=== PATIENT | female | born 1975 | race Caucasian/White ===

== ENCOUNTER → 2017-02-24 | Day surgery (SDC) | payer OTHER ==
[~2017-02-24] MED LIST: ALPRAZOLAM0.5 M2 PO; DEPO-PROVER150 MG/M1 IM; HYDROCODON-ACE1 EAC5 PO; OMEPRAZOLE40 M1 PO; PHENERGAN25 M1; TOPAMAX PO; VITAMIN B 12 IM; XARELTO20 MG PO
--- NOTE | ~2017-02-24 | OR ---
Unit #: [id number] #: [id number] Patient: BRODY BROWN [id number] [address] [address] [id number] O MR#: [id number] NAME: BRODY BROWN ROOM: Date of Procedure: 02/24/2017 Admission Date: 02/24/2017 Surgeon: Milan Bosch M.D. : 1975 Attending Physician: Milan Bosch M.D. Primary Care Physician: Nadiya Corona OPERATIVE REPORT PREOPERATIVE DIAGNOSES 1. Reflux symptoms resistant to medications. 2. Intermittent rectal bleeding. POSTOPERATIVE DIAGNOSES 1. Reflux symptoms resistant to medications. 2. Intermittent rectal bleeding. PROCEDURES PERFORMED 1. Esophagogastroduodenoscopy. 2. Biopsy of antrum for Helicobacter pylori testing. 3. Colonoscopy to cecum. ANESTHESIA Monitored anesthesia care. FINDINGS The patient was found on upper endoscopy to have a small hiatal hernia and mild gastritis. On colonoscopy, the patient was found to have a normal colon except for mild internal hemorrhoids. SPECIMENS Sent to pathology. COMPLICATIONS None apparent. CONDITION The patient tolerated the procedure well. INDICATIONS FOR PROCEDURE The patient is a 41-year-old female, who presents at this time with reflux symptoms resistant to medications and also some intermittent rectal bleeding. She is on Xarelto. She presents at this time for evaluation by upper and lower endoscopy. DESCRIPTION OF PROCEDURE After obtaining informed consent, the patient was brought to the endoscopy suite. After adequate monitored anesthesia care, had the endoscope placed through the mouth into the upper esophagus under direct vision. It was advanced to the second portion of the duodenum without difficulty and with the lumen always in view. The second and third portion of the duodenum Unit #: [id number] #: [id number] Patient: BRODY BROWN were normal. The duodenal bulb was normal. The pylorus opened normally. There was some mild distal gastritis present and a biopsy was obtained for Helicobacter pylori testing. There was good hemostasis. On retroflexing back to the GE junction, the patient was found to have a small hiatal hernia. No other abnormalities were found in the proximal third, middle third, or incisura. The scope was pulled back above the GE junction. There was no stenosis, stricture, or neoplasm seen. There was no significant esophagitis. The remaining portion of the esophagus was within normal limits. Laryngeal structures were grossly normal as viewed from above. At this point in time, the colonoscope was placed through the anus and slowly advanced to the level of the cecum without difficulty with lumen always in view. The cecum was normal as was the ileocecal valve. The ascending colon was normal as was the hepatic flexure, transverse colon, splenic flexure, descending colon, sigmoid colon, and rectum. On retroflexing in the rectum to the anorectal junction, the patient was found to have some mild internal hemorrhoids. The scope was removed without difficulty. The patient tolerated the procedure well and went from the endoscopy suite to the recovery area in stable condition. RECOMMENDATIONS Gastroesophageal reflux sheet given. Prescription for omeprazole given. High-fiber diet, lots of liquids, tucks or wipes p.r.n. Restart Xarelto tomorrow and stop before hernia repair as instructed. Call Thursday for pathology. Dictated by... Barry Bocanegra/lisa TD: 02/24/2017 08:14 JOB #: [id number] CC: . [facility] OPERATIVE REPORT Page 1 of 1 X Milan Bosch MD X PROCEDURE OPERATIVE NOTE
[2017-02-24 08:15] LABS: BASOPHIL% 0.4 % (0-2.5); EOSINOPHIL# 0.2 X10e3 (0-0.7); HEMATOCRIT 44.2 % (35.0-45.0); HEMOGLOBIN 14.3 gm/dL (12.0-16.0); LYMPHOCYTE# 1.9 X10e3 (1.0-3.5); LYMPHOCYTE% 24.8 % (17.0-45.0); MEAN CELL VOLUME 84.8 FL (83-96); MEAN CORPUSCULAR HEMOGLOBIN 27.4 PG (28-34); MEAN CORPUSCULAR HGB CONC 32.3 g/dL (30-36); MEAN PLATELET VOLUME 7.9 FL (6.5-11.5); MONOCYTE# 0.5 X10e3 (0-1.0); MONOCYTE% 6.7 % (3.0-12.0); NEUTROPHIL# 5.1 X10e3 (1.5-7.1); NEUTROPHIL% 66.1 % (40-75); PLATELET COUNT 251 X10e3 (140-420); RED BLOOD COUNT 5.21 X10e (3.90-5.30); RED CELL DISTRIBUTION WIDTH 14.9 % (11.0-15.5); WHITE BLOOD COUNT 7.6 X10e3 (4.0-10.5)
[2017-02-24 08:24] LABS: PROTHROMBIN TIME (PATIENT) 10.7 SECONDS (9.6-11.5)
[2017-02-24 08:31] LABS: DIFF IND NO
[2017-02-24 08:36] LABS: ALBUMIN SERUM 3.5 g/dL (3.5-5.0); BILIRUBIN,TOTAL 0.7 mg/dL (0.2-2.0); CALCIUM SERUM 8.8 mg/dL (8.4-10.2); GLOM FILT RATE Estimated 70.9 mL/min (>60); POTASSIUM 3.4 mmol/L (3.5-5.1); PROTEIN TOTAL SERUM 6.9 g/dL (6.0-8.3)
== END | disposition home or self-care (01) ==
LOC: COPS 05:37
PROVIDERS: Surgery
DX: K21.9 Gastro-esophageal reflux disease without esophagitis (principal); K62.5 Hemorrhage of anus and rectum; K44.9 Diaphragmatic hernia without obstruction or gangrene; K29.70 Gastritis, unspecified, without bleeding; K64.8 Other hemorrhoids; Z79.01 Long term (current) use of anticoagulants; Z88.0 Allergy status to penicillin; Z88.5 Allergy status to narcotic agent; Z88.1 Allergy status to other antibiotic agents; Z88.8 Allergy status to other drugs, medicaments and biological substances; Z87.442 Personal history of urinary calculi; M79.7 Fibromyalgia
CPT/HCPCS: 80053; 84703; 85025; 85610; 87077

== ENCOUNTER → 2017-03-02 | Day surgery (SDC) | payer OTHER ==
--- NOTE | ~2017-03-02 | OR ---
Unit #: [id number] #: [id number] Patient: BRODY BROWN [id number] [address] [address] [id number] O MR#: [id number] NAME: BRODY BROWN ROOM: Date of Procedure: 03/02/2017 Admission Date: 03/02/2017 Surgeon: Franco Cruz M.D. : 1975 Attending Physician: Franco Cruz M.D. Primary Care Physician: Nadiya Corona OPERATIVE REPORT PREOPERATIVE DIAGNOSIS Incarcerated incisional hernia. POSTOPERATIVE DIAGNOSIS Incarcerated incisional hernia, 3 cm. PROCEDURE PERFORMED Laparoscopic ventral hernia repair of incarcerated incisional hernia with 6-inch circular Ventralight mesh. PURCHASING AND CLAIMS SUPERVISOR Hiro. ANESTHESIA General endotracheal anesthesia. ESTIMATED BLOOD LOSS Minimal. IV FLUIDS 800 crystalloid. COMPLICATIONS None. INDICATIONS FOR PROCEDURE The patient is a 41-year-old with hernia at her previous umbilical hernia repair site. She presents for laparoscopic repair. DESCRIPTION OF PROCEDURE The patient was taken to the operative theater and placed in supine position. General anesthesia was induced. The abdomen was prepped and draped. A 5-mm Optiview trocar was placed in the left upper quadrant without difficulty. The abdomen was insufflated to 15 mmHg with CO2. Under direct vision, I placed a left lower quadrant 10 mm. General inspection the abdomen revealed an incarcerated hernia with omentum. This was reduced with gentle traction. I then placed a 5-mm port in the right lower quadrant. I positioned a 6-inch Ventralight mesh over the defect. This was held in place with single-stranded Vicryl sutures and delivered transcutaneous. I then secured this with a SorbaFix Tacker in 2 circumferential rows. This covered the defect by at least 5 cm. Hemostasis was adequate. I removed the ports under direct vision, closed with 4-0 Vicryl. The patient tolerated the procedure well and sent to the Unit #: [id number] #: [id number] Patient: BRODY BROWN recovery room in good condition. Dictated by... Barry Rodriguez/lisa TD: 03/03/2017 02:24 JOB #: [id number] OPERATIVE REPORT Page 1 of 1 X Franco Cruz MD PROCEDURE OPERATIVE NOTE
== END | disposition home or self-care (01) ==
LOC: CSUR 05:37
DX: K43.0 Incisional hernia with obstruction, without gangrene (principal); E66.01 Morbid (severe) obesity due to excess calories; K21.9 Gastro-esophageal reflux disease without esophagitis; G43.909 Migraine, unspecified, not intractable, without status migrainosus; F41.9 Anxiety disorder, unspecified; Z68.43 Body mass index [BMI] 50.0-59.9, adult; Z86.718 Personal history of other venous thrombosis and embolism; Z87.442 Personal history of urinary calculi; Z88.0 Allergy status to penicillin; Z88.1 Allergy status to other antibiotic agents; Z88.2 Allergy status to sulfonamides; Z88.6 Allergy status to analgesic agent; Z91.040 Latex allergy status; Z91.041 Radiographic dye allergy status; Z79.01 Long term (current) use of anticoagulants; Z79.891 Long term (current) use of opiate analgesic; Z79.899 Other long term (current) drug therapy; Z90.49 Acquired absence of other specified parts of digestive tract; Z90.89 Acquired absence of other organs; Z98.890 Other specified postprocedural states
CPT/HCPCS: 84703; C1781; J0131; J0330; J1100; J1644; J1956; J2250; J2405; J3010

== ENCOUNTER → 2017-03-09 | Outpatient (CLI) | payer OTHER ==
[2017-03-09 12:19] LABS: URINE APPEARANCE CLOUDY; URINE BILIRUBIN NEG (NEG); URINE BLOOD TRACE (NEG); URINE COLOR DK YELLOW; URINE GLUCOSE NEG (NEG); URINE KETONE NEG (NEG); URINE LEUKOCYTE ESTERASE 2+ (NEG); URINE NITRATE NEG (NEG); URINE PROTEIN NEG (NEG); URINE SPECIFIC GRAVITY 1.025 (1.003-1.035)
[2017-03-09 12:21] LABS: URBCS1 AUWI 0-2 /[HPF] (0-2); URINE BACTERIA AUWI 4+ (NEGATIVE); URINE SQUAMOUS EPITHELIAL CELL FEW /[HPF]; UWBCS1 AUWI 50-100 (0-5)
[2017-03-09 12:23] LABS: URINE SOURCE CLEAN CATCH
== END | disposition home or self-care (01) ==
LOC: CLAB 11:49
PROVIDERS: Surgery
DX: R06.00 Dyspnea, unspecified (principal)
CPT/HCPCS: 81003

== ENCOUNTER → 2017-05-27 | Outpatient (CLI) | payer OTHER ==
--- NOTE | ~2017-05-27 | CT2 ---
[facility] A Service of [facility] RADIOLOGY TEXT RESULTS PATIENT: BRODY BROWN LOCATION: [facility] : [birth year] UNIT #: [id number] AGE: [address]: Milan Bosch MD SEX: F ORDER DR: [id number] [facility] [address] [place], [place] [address] [id number] O MR#: [id number] Acc #: [id number] NAME: BRODY BROWN : 1975 SEX: F STUDY DATE/TIME: 05/27/2017 9:22 UNIT: [facility] ROOM: STUDY DESCRIPTION: CT Abd and Pelv W Cont Attending Physician: Milan Bosch M.D. Referring Physician: Milan Bosch M.D. Ordering Physician: Milan Bosch M.D. Primary Care Physician: Nadiya Corona MEDICAL IMAGING REPORT This report is preliminary unless electronic signature is present EXAM CT abdomen and pelvis with contrast DATE 05/27/2017 HISTORY Mid abdominal pain for 1.5 weeks. Patient states inguinal hernia repair March 2017. Physician's order states history of ventral hernia repair. COMPARISON CT abdomen and pelvis without contrast 12/17/2016. CT abdomen and pelvis with contrast 01/18/2014. PROCEDURE 5 mm axial images from lung bases to lesser trochanters after intravenous contrast administration. Enteric contrast was attempted to be administered to the patient, but the patient states that they could not tolerate it. Therefore, the study was performed without benefit of oral contrast. Sagittal and coronal reformatted images were obtained. This CT exam was performed with one or more of the following radiation dose reduction techniques: automatic control, adjustment of mA and/or kV according to patient size, and iterative reconstruction. FINDINGS ABDOMEN FINDINGS: There is a small ventral abdominal hernia to the right of the umbilicus containing only fat. The neck of the hernia sac measures 1.8 cm transversely. The hernia sac itself measures about 2.0 x 2.9 x 3.3 cm, and measures smaller than on the 12/17/2016 examination. This hernia sac contains only omental fat which does not appear incarcerated or inflamed. Mild splenomegaly 16.6 cm compared to 17.7 cm on 01/18/2014. No focal STS. [facility] A Service of [facility] RADIOLOGY TEXT RESULTS PATIENT: BRODY BROWN LOCATION: [facility] : [birth year] UNIT #: [id number] AGE: [address]: Milan Bosch MD SEX: F ORDER DR: splenic lesion. Cholecystectomy. The liver, pancreas, adrenals and kidneys appear unremarkable. The unopacified bowel appears nonthickened and noninflamed and the appendix appears normal. PELVIS FINDINGS: Urinary bladder, uterus and rectum are within normal limits. No acute osseous abnormalities. Lung bases appear free of acute airspace disease. IMPRESSION 1. Small fat containing ventral abdominal hernia to the right of the umbilicus measures slightly smaller than on 12/17/2016. The hernia contains only fat which does not appear inflamed or incarcerated. No bowel containing hernia is seen. 2. No acute findings. 3. Mild splenomegaly, diminished since a more remote 2013 exam. 4. Cholecystectomy. Dictated by... Megan Beltrán M.D. THIS IS AN ELECTRONICALLY VERIFIED REPORT Megan Beltrán M.D. at 05/29/2017 9:33 PM HIMANSHU/rocío TD: 05/27/2017 12:38 JOB #: [id number] MEDICAL IMAGING REPORT Page 1 of 1 COPY
== END | disposition home or self-care (01) ==
LOC: CCAT 08:11
DX: R10.9 Unspecified abdominal pain (principal); K46.9 Unspecified abdominal hernia without obstruction or gangrene; R16.1 Splenomegaly, not elsewhere classified; Z98.890 Other specified postprocedural states; Z90.49 Acquired absence of other specified parts of digestive tract
CPT/HCPCS: 74177; Q9967

== ENCOUNTER → 2017-06-04 | Outpatient (CLI) | payer OTHER ==
[2017-06-04 13:08] LABS: HEMATOCRIT 40.9 % (35.0-45.0); HEMOGLOBIN 13.7 gm/dL (12.0-16.0); MEAN CELL VOLUME 82.7 FL (83-96); MEAN CORPUSCULAR HEMOGLOBIN 27.7 PG (28-34); MEAN CORPUSCULAR HGB CONC 33.5 g/dL (30-36); MEAN PLATELET VOLUME 7.9 FL (6.5-11.5); RED BLOOD COUNT 4.95 X10e (3.90-5.30); RED CELL DISTRIBUTION WIDTH 14.4 % (11.0-15.5); WHITE BLOOD COUNT 6.1 X10e3 (4.0-10.5)
== END | disposition home or self-care (01) ==
LOC: CAMB 11:16
PROVIDERS: Surgery
DX: Z01.812 Encounter for preprocedural laboratory examination (principal)
CPT/HCPCS: 36415; 85027

== ENCOUNTER → 2017-06-12 | Day surgery (SDC) | payer OTHER ==
--- NOTE | ~2017-06-12 | OR ---
Unit #: [id number] #: [id number] Patient: BRODY BROWN [id number] [address] [place], [place] [address] [id number] O MR#: [id number] NAME: BRODY BROWN ROOM: Date of Procedure: 06/12/2017 Admission Date: 06/12/2017 Surgeon: Franco Cruz M.D. : 1975 Attending Physician: Franco Cruz M.D. Primary Care Physician: Nadiya Corona OPERATIVE REPORT PREOPERATIVE DIAGNOSIS Recurrent incisional hernia. POSTOPERATIVE DIAGNOSIS Recurrent 2.5 cm incisional hernia. PROCEDURE PERFORMED Laparoscopic ventral hernia repair of recurrent incisional hernia with 6-inch circular Ventralight mesh. PHARMACY CARE COORDINATOR Star Solis M.D. ANESTHESIA General. ESTIMATED BLOOD LOSS Minimal. IV FLUIDS 500 crystalloid. COMPLICATIONS None. INDICATIONS FOR PROCEDURE The patient is a 41-year-old lady, who is status post laparoscopic incisional hernia repair. She presents with an enlarging bulge and pain around her mesh. She presents for diagnostic laparoscopy, possible hernia repair. DESCRIPTION OF PROCEDURE The patient was taken to the operating theater and placed in supine position. General anesthesia was induced. Her abdomen was prepped and draped. A 5-mm Optiview trocar was placed in the left upper quadrant without difficulty. The abdomen was insufflated to 15 mmHg with CO2. Under direct vision, I placed left lower quadrant 10 mm. The patient was found to have multiple adhesions to the mesh. These were taken down. I identified 2.5 cm recurrent hernia at the right lateral portion of the mesh. This appeared to have pulled away somewhat exposed this hernia, which had enlarged. I then placed two 5-mm ports in the right lower and upper quadrant. I placed a 6-inch Ventralight mesh into position. This Unit #: [id number] #: [id number] Patient: BRODY BROWN was centralized over the new defect. This was held into place with single-stranded Vicryl sutures and delivered transcutaneous and secured with the CapSure permanent Tacker. I did 2 circumferential rows of tacks with each tack being 1.5 cm from previous tack. This covered the defect by at least 5 cm. Hemostasis was adequate. I removed the ports under direct vision and closed the wounds with 4-0 Vicryl. The patient tolerated the procedure well and sent to recovery room in good condition. Dictated by... Barry Rodriguez/lisa TD: 06/12/2017 14:26 JOB #: [id number] OPERATIVE REPORT Page 1 of 1 X Franco Cruz MD X PROCEDURE OPERATIVE NOTE
== END | disposition home or self-care (01) ==
LOC: CSUR 09:21
DX: K43.0 Incisional hernia with obstruction, without gangrene (principal); K21.9 Gastro-esophageal reflux disease without esophagitis; G47.30 Sleep apnea, unspecified; M19.90 Unspecified osteoarthritis, unspecified site; M51.37 Other intervertebral disc degeneration, lumbosacral region; D50.9 Iron deficiency anemia, unspecified; E66.01 Morbid (severe) obesity due to excess calories; I82.402 Acute embolism and thrombosis of unspecified deep veins of left lower extremity; M06.9 Rheumatoid arthritis, unspecified; F32.9 Major depressive disorder, single episode, unspecified; E11.9 Type 2 diabetes mellitus without complications; J45.909 Unspecified asthma, uncomplicated; Z87.442 Personal history of urinary calculi; Z68.44 Body mass index [BMI] 60.0-69.9, adult; Z88.0 Allergy status to penicillin; Z88.1 Allergy status to other antibiotic agents; Z88.5 Allergy status to narcotic agent; Z88.8 Allergy status to other drugs, medicaments and biological substances; Z88.2 Allergy status to sulfonamides; Z90.49 Acquired absence of other specified parts of digestive tract; Z91.040 Latex allergy status; Z98.890 Other specified postprocedural states; Z79.899 Other long term (current) drug therapy
CPT/HCPCS: C1781; J0330; J1100; J1170; J1644; J1956; J2250; J2405; J2550; J2710; J3010

== ENCOUNTER → 2017-07-02 | Outpatient (CLI) | payer OTHER ==
--- NOTE | ~2017-07-02 | CT2 ---
[facility] A Service of [facility] RADIOLOGY TEXT RESULTS PATIENT: BRODY BROWN [facility] : [birth year] UNIT #: [id number] AGE: [address]: Franco Cruz MD SEX: F ORDER DR: [id number] [facility] [address] [place], [place] [address] [id number] O MR#: [id number] Acc #: [id number] NAME: BRODY BROWN : 1975 SEX: F STUDY DATE/TIME: 07/02/2017 12:28 UNIT: [facility] ROOM: STUDY DESCRIPTION: CT Abd and Pelv W Cont Attending Physician: Franco Cruz M.D. Referring Physician: Franco Cruz M.D. Ordering Physician: Franco Cruz M.D. Primary Care Physician: Nadiya Corona MEDICAL IMAGING REPORT This report is preliminary unless electronic signature is present EXAM CT of the abdomen and pelvis with contrast. INDICATIONS Recent hernia repair, still having pain since hernia repair. Pain present since June 12. TECHNIQUE CT of the abdomen and pelvis was performed following the administration of oral and IV contrast. Coronal and sagittal reformatted images were obtained. This CT exam was performed with one or more of the following radiation dose reduction techniques: automatic exposure control, adjustment of mA and/or kV according to patient size, and iterative reconstruction. COMPARISON 05/27/2017 FINDINGS Lung bases are clear. Liver unremarkable. Cholecystectomy. The spleen is unremarkable. The kidneys, adrenal glands and pancreas are unremarkable. Postop ventral hernia repair. Tiny fluid collection in the subcutaneous fat anterior to the hernia repair measuring about 1.9 x 2.6 cm. No evidence for recurrent hernia. PELVIS: Colon is unremarkable. No free fluid. The remainder of the pelvis is unremarkable. Bone windows are unremarkable. IMPRESSION Prior evidence for hernia repair. Tiny fluid collection in the subcutaneous fat anterior to the hernia repair measuring about 2.6 x 1.9 cm. The collection is located around the level of the umbilicus and to the right. [facility] A Service of [facility] RADIOLOGY TEXT RESULTS PATIENT: BRODY BROWN LOCATION: [facility] : [birth year] UNIT #: [id number] AGE: [address]: Franco Cruz MD SEX: F ORDER DR: Dictated by... Rao Cadena M.D. THIS IS AN ELECTRONICALLY VERIFIED REPORT Rao Cadena M.D. at 07/03/2017 7:36 AM REINA/susie TD: 07/02/2017 18:13 JOB #: [id number] MEDICAL IMAGING REPORT Page 1 of 1 COPY
== END | disposition home or self-care (01) ==
LOC: CCAT 10:48
DX: R10.31 Right lower quadrant pain (principal)
CPT/HCPCS: 74177; Q9967